=== PATIENT | male | born 1990 | race Hispanic/Latino ===

== ENCOUNTER → 2016-10-13 | Outpatient (CLI) | payer SELFPAY | LOC: M LAB 14:14 | PROVIDERS: ATTEND Physician Assistant | DX: R10.84 Generalized abdominal pain (principal) ==

== ENCOUNTER → 2019-01-01 | Outpatient (CLI) | payer SELFPAY ==
--- NOTE | 2019-01-01 11:31 | REP ---
Clinical: Pain. Technique: AP and lateral views of the left tibia / fibula. Findings: No acute fracture or dislocation. Skeletal structures, joint spaces, and surrounding soft tissues are normal. Impression: No acute fracture or dislocation. Electronically Signed by Denys Kelley MD 01/01/2019 11:23 A
== END ==
LOC: M ADAMS 09:59
PROVIDERS: ATTEND Physician Assistant Medical
DX: S80.12XA Contusion of left lower leg, initial encounter (principal); X58.XXXA Exposure to other specified factors, initial encounter; Y92.9 Unspecified place or not applicable

== ENCOUNTER → 2021-04-08 | Outpatient (REF) | payer SELFPAY | LOC: M WUC 15:36 | PROVIDERS: ATTEND Physician Assistant | DX: H60.312 Diffuse otitis externa, left ear (principal) ==